=== PATIENT | female | born 2000 | race Caucasian/White ===

== ENCOUNTER 2023-01-10 21:05 | Emergency (ER) | payer MEDICAID, SELFPAY ==
[2023-01-10 21:11] VITALS: BP 115/65; PULSE 67; RESP 14; TEMP 37.2; O2SAT 98; BMI 26.4
--- NOTE | 2023-01-10 21:23 | ED_ITS ---
HPI - General Adult General Chief complaint: Abdominal Pain Stated complaint: CONSTIPATION, 11-WEEKS Time Seen by Provider: 01/10/23 21:22 Source: patient Mode of arrival: walk-in Limitations: no limitations History of Present Illness HPI narrative: 22-year-old female who is 11 weeks presents for needing relief for constipation. She states that she has been having very hard stools for the past month. She was recently seen at [facility] ER and received a prescription for MiraLAX and has not picked this up as she cannot afford the prescription. Denies vaginal bleeding. Denies abd or back pain, dysuria, n/v Related Data Allergies Allergy/AdvReac Type Severity Reaction Status Date / Time No Known Drug Allergies Allergy Verified 01/10/23 21:11 Review of Systems ROS Status of ROS 10 or more systems reviewed and unremarkable except as noted in history and below Exam Narrative Exam Narrative: General: A&Ox3, no distress, talking in full an complete sentences skin: warm, dry, intact head: normocephalic, atraumatic eyes: EOMI nose: nares patent neck: supple, trachea midline respiratory: non-labored extremities: FROM x 4, strength +5/5 abd: soft, NT neuro: A&Ox3 psych: appropriate mood and affect, cooperative Constitutional Vital Signs - 24 hr 01/10/23 21:11 Temperature 99.0 F Pulse Rate [Monitor] 67 Respiratory Rate 14 Blood Pressure [Left Arm] 115/65 Pulse Oximetry 98 Oxygen Delivery Method Room Air Course Vital Signs Vital signs: Vital Signs Temperature 99.0 F 01/10/23 21:11 Pulse Rate 67 01/10/23 21:11 Respiratory Rate 14 01/10/23 21:11 Blood Pressure 115/65 01/10/23 21:11 Pulse Oximetry 98 01/10/23 21:11 Oxygen Delivery Method Room Air 01/10/23 21:11 Temperature 99.0 F 01/10/23 21:11 Pulse Rate 67 01/10/23 21:11 Respiratory Rate 14 01/10/23 21:11 Blood Pressure 115/65 01/10/23 21:11 Pulse Oximetry 98 01/10/23 21:11 Oxygen Delivery Method Room Air 01/10/23 21:11 Medical Decision Making MDM Narrative Medical decision making narrative: Patient states that she had significant relief with the soapsuds enema. She is to follow-up with [facility]. afebrile, not tachycardic, not hypoxic, non toxic appearing and ambulating at baseline and hemodynamically stable to be d/c. answered all questions. pt in agreement with tx. educated when to return to ER. Discharge Plan Discharge Chief Complaint: Abdominal Pain Clinical Impression: Constipation Qualifiers: Constipation type: unspecified constipation type Qualified Code(s): K59.00 - Constipation, unspecified Patient Disposition: Home, Self-Care Time of Disposition Decision: 21:45 Condition: Good Mode of Transportation: Private Vehicle Instructions: Constipation (ED) Stand Alone Forms: Portal Instructions Referrals: ob,municipal clerk [Other] - 1 week Physician,Non-Staff, MD [Primary Care Provider] - 1 week Discharge Date/Time: 01/10/23 21:59
--- NOTE | 2023-01-10 21:55 | PC.NURSE ---
Pt states she had a very large bowel movement Pt sates she is feeling much better at this time Ambulated to the restroom because she has to pee Pt states she is ready to go home
== END 2023-01-10 21:59 | disposition home or self-care (01) ==
PROVIDERS: Emergency Provider Internal Medicine
DX: O26.891 Other specified pregnancy related conditions, first trimester (principal); K59.00 Constipation, unspecified; Z3A.11 11 weeks gestation of pregnancy
CPT/HCPCS: 99283